=== PATIENT | male | born 1955 | race Two or more races ===

== ENCOUNTER 2019-02-01 23:13 | Inpatient (IN) | payer MEDICARE ==
[~2019-02-01] VITALS: Ht 185.4 cm; Wt 74.5 kg
[2019-02-02] MEDS ORDERED: ALBUTEROL/IPRATROPIUM 2.5MG/0.5MG, 3 ML ONE (02:09)
[2019-02-02 02:51] LABS: BASOPHILS # (AUTO) 0.03 x10^3/uL (0-0.1); BASOPHILS % (AUTO) 0 % (0-1); EOSINOPHILS # (AUTO) 0.01 x10^3/uL (0-0.4); EOSINOPHILS % (AUTO) 0 % (1-7); LYMPHOCYTES # (AUTO) 0.57 x10^3/uL (1-3.4); LYMPHOCYTES % (AUTO) 6 % (22-44); MD NO; MEAN CORPUSCULAR HEMOGLOBIN 31.8 pg (27.5-34.5); MEAN CORPUSCULAR HGB CONC 33.9 g/dL (33.2-36.2); MEAN CORPUSCULAR VOLUME 93.6 fL (81-97); MEAN PLATELET VOLUME 10.2 fL (7.4-10.4); MONOCYTES # (AUTO) 0.58 x10^3/uL (0.2-0.8); MONOCYTES % (AUTO) 6 % (2-9); NEUTROPHILS # (AUTO) 8.89 x10^3/uL (1.8-6.8); NEUTROPHILS % (AUTO) 88 % (42-75); PLATELET COUNT 159 x10^3/uL (130-400); RED CELL DISTRIBUTION WIDTH 13.6 % (9.4-14.8)
[2019-02-02] MEDS ORDERED: AMIODARONE 150 MG in DEXTROSE 5% 100 ML IV ONE (03:00)
[2019-02-02] MEDS ORDERED: AMIODARONE 900 MG in DEXTROSE 5% 482 ML IV PRN (03:00)
[2019-02-02 03:02] LABS: ANION GAP 6 mmol/L (5-15); CALCIUM 7.5 mg/dL (8.5-10.1); CHLORIDE 112 mmol/L (98-107); CREATININE 0.93 mg/dL (0.7-1.3)
[2019-02-02] MEDS ORDERED: PLEASE ENTER HEIGHT AND WEIGHT MC SCH (03:30)
[2019-02-02] MEDS ORDERED: AZITHROMYCIN 500 MG in SODIUM CHLORIDE 0.9% 250 ML IVPB SCH (03:30)
[2019-02-02] MEDS ORDERED: FILTER 0.22 MICRON IV PRN (03:30)
[2019-02-02] MEDS ORDERED: PHARMACY MAY ADJ FOR RENAL FX MC PRN (03:30)
[2019-02-02] MEDS ORDERED: ACETAMINOPHEN 650 MG/20.3 ML UDC PO PRN (03:30)
[2019-02-02] MEDS ORDERED: PANTOPRAZOLE 40 MG IV IV SCH (03:30)
[2019-02-02] MEDS ORDERED: PIPERACILLIN/TAZO/PMX 4.5GM 50 ML IVPB SCH (03:30)
[2019-02-02] MEDS ORDERED: methylPREDNISolone SOD SUCC 125 MG/2 ML IVPush SCH (03:30)
[2019-02-02] MEDS ORDERED: PLEASE ENTER ALLERGIES MC SCH (03:30)
[2019-02-02] MEDS ORDERED: MORPHINE SULFATE 4 MG/ML, 1ML IV PRN (03:30)
[2019-02-02] MEDS ORDERED: FUROSEMIDE 20 MG/2 ML ONE (03:34)
[2019-02-02] MEDS: FUROSEMIDE 20 MG/2 ML IV SCH ×2 (03:38→17:34)
[2019-02-02 03:39] VITALS: BP 148/128
[2019-02-02 04:04] VITALS: BP 111/73
[2019-02-02 04:15] LABS: ALANINE AMINOTRANSFERASE 51 U/L (12-78); ALBUMIN 2.9 g/dL (3.4-5.0); ANION GAP 6 mmol/L (5-15); CALCIUM 7.4 mg/dL (8.5-10.1); CHLORIDE 112 mmol/L (98-107); CREATININE 0.97 mg/dL (0.7-1.3)
[2019-02-02 04:19] LABS: ALKALINE PHOSPHATASE 72 U/L (45-117); BILIRUBIN,TOTAL 0.5 mg/dL (0.2-1.0); TOTAL PROTEIN 6.4 g/dL (6.4-8.2); TROPONIN I < 0.015 ng/mL (0.000-0.045)
[2019-02-02] MEDS ORDERED: hydrALAzine 20 MG/ML, 1ML IV PRN (04:30)
[2019-02-02] MEDS ORDERED: FENTANYL PF 100 MCG/2ML ONE (06:26)
[2019-02-02] MEDS: ALBUTEROL/IPRATROPIUM 2.5MG/0.5MG, 3 ML NPPB SCH ×5 (06:30→23:02)
[2019-02-02] MEDS ORDERED: PHARMACY MAY ADJ FOR RENAL FX MC SCH (06:30)
[2019-02-02] MEDS ORDERED: LIDOCAINE-MPF 1%, 2ML ENDO PRN (06:30)
[2019-02-02] MEDS ORDERED: FENTANYL PF 100 MCG/2ML IVPush PRN (06:30)
[2019-02-02] MEDS ORDERED: FENTANYL PF 100 MCG/2ML IV ONE (07:00)
[2019-02-02] MEDS: CEFTRIAXONE PMX 1GM/50ML 50 ML IV SCH (07:20)
[2019-02-02] MEDS: FAMOTIDINE 20 MG/2 ML IV SCH ×2 (07:20→20:00)
[2019-02-02] MEDS ORDERED: FUROSEMIDE 20 MG TABLET PO SCH (07:30)
[2019-02-02] MEDS: DOXYCYCLINE 100 MG in DEXTROSE 5% 250 ML IV SCH ×2 (08:15→22:15)
--- NOTE | 2019-02-02 09:57 | NUR ---
TF GOAL: w/ propofol: PROMOTE @ 75ml/hr off propofol: PROMOTE @ 80ml/hr
[2019-02-02] MEDS: methylPREDNISolone SOD SUCC 125 MG/2 ML IVPush SCH ×3 (10:29→22:06)
[2019-02-02] MEDS ORDERED: PROPOFOL 10 MG/ML, 100ML IV ONE (13:37)
[2019-02-02] MEDS ORDERED: ETOMIDATE 20 MG/10 ML ONE (13:37)
[2019-02-02] MEDS ORDERED: MIDAZOLAM 1 MG/ML, 5ML ONE (13:37)
[2019-02-02] MEDS: MIDAZOLAM 1 MG/ML, 2ML IVPush PRN (14:08)
[2019-02-02] MEDS: PROPOFOL 100 ML IV PRN ×2 (14:08→22:09)
[2019-02-02] MEDS: ENOXAPARIN 40 MG/0.4 ML SQ SCH (17:34)
[2019-02-03] MEDS: PROPOFOL 100 ML IV PRN ×5 (01:11→20:09)
[2019-02-03] MEDS: SODIUM CHLORIDE 0.9% 1,000 ML IV SCH ×3 (01:12→13:39)
[2019-02-03] MEDS: ALBUTEROL/IPRATROPIUM 2.5MG/0.5MG, 3 ML NPPB SCH ×6 (03:11→22:25)
[2019-02-03] MEDS: MIDAZOLAM 1 MG/ML, 2ML IVPush PRN ×4 (03:32→17:27)
[2019-02-03] MEDS: methylPREDNISolone SOD SUCC 125 MG/2 ML IVPush SCH ×4 (03:32→22:16)
[2019-02-03 04:00] VITALS: BP 98/68
[2019-02-03 04:24] LABS: BASOPHILS # (AUTO) 0.07 x10^3/uL (0-0.1); BASOPHILS % (AUTO) 1 % (0-1); EOSINOPHILS % (AUTO) 0 % (1-7); LYMPHOCYTES # (AUTO) 0.58 x10^3/uL (1-3.4); LYMPHOCYTES % (AUTO) 5 % (22-44); MD NO; MEAN CORPUSCULAR HEMOGLOBIN 31.5 pg (27.5-34.5); MEAN CORPUSCULAR HGB CONC 33.9 g/dL (33.2-36.2); MEAN CORPUSCULAR VOLUME 92.9 fL (81-97); MEAN PLATELET VOLUME 10.1 fL (7.4-10.4); MONOCYTES # (AUTO) 0.71 x10^3/uL (0.2-0.8); MONOCYTES % (AUTO) 6 % (2-9); NEUTROPHILS # (AUTO) 10.78 x10^3/uL (1.8-6.8); NEUTROPHILS % (AUTO) 89 % (42-75); PLATELET COUNT 148 x10^3/uL (130-400); RED BLOOD COUNT 4.19 x10^6/uL (4.38-5.82); RED CELL DISTRIBUTION WIDTH 13.1 % (9.4-14.8)
[2019-02-03 04:33] LABS: ANION GAP 4 mmol/L (5-15); CALCIUM 7.7 mg/dL (8.5-10.1); CHLORIDE 110 mmol/L (98-107); CREATININE 0.91 mg/dL (0.7-1.3)
[2019-02-03] MEDS: CEFTRIAXONE PMX 1GM/50ML 50 ML IV SCH (06:20)
[2019-02-03] MEDS: DOXYCYCLINE 100 MG in DEXTROSE 5% 250 ML IV SCH ×2 (08:29→20:09)
[2019-02-03] MEDS: FAMOTIDINE 20 MG/2 ML IV SCH ×2 (08:29→20:09)
[2019-02-03] MEDS: QUETIAPINE 25MG TABLET NG SCH ×2 (08:30→17:27)
[2019-02-03] MEDS: ENOXAPARIN 40 MG/0.4 ML SQ SCH (17:28)
[2019-02-04] MEDS: MIDAZOLAM 1 MG/ML, 2ML IVPush PRN
[2019-02-04] MEDS: QUETIAPINE 25MG TABLET NG SCH ×3 (00:30→17:27)
[2019-02-04] MEDS: PROPOFOL 100 ML IV PRN ×6 (00:32→23:32)
[2019-02-04] MEDS: ALBUTEROL/IPRATROPIUM 2.5MG/0.5MG, 3 ML NPPB SCH ×6 (02:22→23:00)
[2019-02-04] MEDS: SODIUM CHLORIDE 0.9% 1,000 ML IV SCH ×2 (04:39→20:47)
[2019-02-04] MEDS: methylPREDNISolone SOD SUCC 125 MG/2 ML IVPush SCH ×2 (04:44→10:24)
[2019-02-04 05:22] VITALS: BP 112/70
[2019-02-04 05:30] LABS: MEAN CORPUSCULAR HEMOGLOBIN 31.6 pg (27.5-34.5); MEAN CORPUSCULAR HGB CONC 33.6 g/dL (33.2-36.2); MEAN CORPUSCULAR VOLUME 93.9 fL (81-97); MEAN PLATELET VOLUME 10.7 fL (7.4-10.4); PLATELET COUNT 123 x10^3/uL (130-400); RED BLOOD COUNT 4.05 x10^6/uL (4.38-5.82); RED CELL DISTRIBUTION WIDTH 13.6 % (9.4-14.8)
[2019-02-04 05:34] LABS: ANION GAP 6 mmol/L (5-15); CALCIUM 7.8 mg/dL (8.5-10.1); CHLORIDE 112 mmol/L (98-107)
[2019-02-04] MEDS: CEFTRIAXONE PMX 1GM/50ML 50 ML IV SCH (06:03)
[2019-02-04 06:05] LABS: BASOPHILS # (AUTO) 0.01 x10^3/uL (0-0.1); BASOPHILS % (AUTO) 0 % (0-1); EOSINOPHILS # (AUTO) 0.01 x10^3/uL (0-0.4); EOSINOPHILS % (AUTO) 0 % (1-7); LYMPHOCYTES % (AUTO) 5 % (22-44); MD SCAN; MONOCYTES # (AUTO) 0.52 x10^3/uL (0.2-0.8); MONOCYTES % (AUTO) 4 % (2-9); NEUTROPHILS # (AUTO) 11.93 x10^3/uL (1.8-6.8); NEUTROPHILS % (AUTO) 91 % (42-75)
[2019-02-04] MEDS ORDERED: DEXMEDETOMIDINE 1,000 MCG in SODIUM CHLORIDE 0.9% 240 ML IV PRN (08:30)
[2019-02-04] MEDS: FAMOTIDINE 20 MG/2 ML IV SCH ×2 (09:18→20:47)
[2019-02-04] MEDS: DOXYCYCLINE 100 MG in DEXTROSE 5% 250 ML IV SCH ×2 (09:20→20:47)
[2019-02-04] MEDS: methylPREDNISolone SOD SUCC 40 MG/ML IVPush SCH (17:27)
[2019-02-04] MEDS: ENOXAPARIN 40 MG/0.4 ML SQ SCH (17:27)
[2019-02-04] MEDS: BUDESONIDE 0.5 MG/2 ML INHA INH SCH (21:00)
[2019-02-05] MEDS: methylPREDNISolone SOD SUCC 40 MG/ML IVPush SCH ×3 (01:13→13:44)
[2019-02-05] MEDS: QUETIAPINE 25MG TABLET NG SCH ×2 (01:13→07:32)
[2019-02-05] MEDS: PROPOFOL 100 ML IV PRN (02:47)
[2019-02-05] MEDS: ALBUTEROL/IPRATROPIUM 2.5MG/0.5MG, 3 ML NPPB SCH ×5 (03:00→20:31)
[2019-02-05 04:00] VITALS: BP 146/94
[2019-02-05 04:41] LABS: BASOPHILS # (AUTO) 0.06 x10^3/uL (0-0.1); BASOPHILS % (AUTO) 1 % (0-1); EOSINOPHILS # (AUTO) 0.01 x10^3/uL (0-0.4); EOSINOPHILS % (AUTO) 0 % (1-7); LYMPHOCYTES # (AUTO) 0.92 x10^3/uL (1-3.4); LYMPHOCYTES % (AUTO) 8 % (22-44); MD NO; MEAN CORPUSCULAR HEMOGLOBIN 31.3 pg (27.5-34.5); MEAN CORPUSCULAR VOLUME 94.7 fL (81-97); MEAN PLATELET VOLUME 9.8 fL (7.4-10.4); MONOCYTES # (AUTO) 0.87 x10^3/uL (0.2-0.8); MONOCYTES % (AUTO) 7 % (2-9); NEUTROPHILS % (AUTO) 84 % (42-75); PLATELET COUNT 169 x10^3/uL (130-400); RED CELL DISTRIBUTION WIDTH 13.5 % (9.4-14.8)
[2019-02-05 04:43] LABS: ANION GAP 4 mmol/L (5-15); CALCIUM 8.1 mg/dL (8.5-10.1); CHLORIDE 110 mmol/L (98-107)
[2019-02-05 04:44] LABS: CREATININE 0.72 mg/dL (0.7-1.3); TRIGLYCERIDES 135 mg/dL (50-200)
[2019-02-05] MEDS: CEFTRIAXONE PMX 1GM/50ML 50 ML IV SCH (06:09)
[2019-02-05] MEDS: BUDESONIDE 0.5 MG/2 ML INHA INH SCH ×2 (06:50→20:31)
[2019-02-05] MEDS ORDERED: FUROSEMIDE 20 MG/2 ML IV ONE (07:00)
[2019-02-05] MEDS: FAMOTIDINE 20 MG/2 ML IV SCH (07:31)
[2019-02-05] MEDS: DOXYCYCLINE 100 MG in DEXTROSE 5% 250 ML IV SCH (07:32)
[2019-02-05] MEDS: ENOXAPARIN 40 MG/0.4 ML SQ SCH (17:33)
[2019-02-06] MEDS: ALBUTEROL/IPRATROPIUM 2.5MG/0.5MG, 3 ML NPPB SCH ×5 (00:08→22:40)
[2019-02-06 04:44] LABS: ANION GAP 4 mmol/L (5-15); CALCIUM 8.1 mg/dL (8.5-10.1); CHLORIDE 105 mmol/L (98-107); CREATININE 0.68 mg/dL (0.7-1.3)
[2019-02-06 04:51] LABS: MEAN CORPUSCULAR HEMOGLOBIN 31.3 pg (27.5-34.5); MEAN CORPUSCULAR HGB CONC 33.6 g/dL (33.2-36.2); MEAN CORPUSCULAR VOLUME 93.3 fL (81-97); MEAN PLATELET VOLUME 9.8 fL (7.4-10.4); PLATELET COUNT 199 x10^3/uL (130-400); RED BLOOD COUNT 4.32 x10^6/uL (4.38-5.82); RED CELL DISTRIBUTION WIDTH 13.6 % (9.4-14.8)
[2019-02-06 05:00] VITALS: BP 119/63
[2019-02-06 05:13] LABS: BASOPHILS # (AUTO) 0.15 x10^3/uL (0-0.1); BASOPHILS % (AUTO) 1 % (0-1); EOSINOPHILS # (AUTO) 0.05 x10^3/uL (0-0.4); EOSINOPHILS % (AUTO) 0 % (1-7); LYMPHOCYTES # (AUTO) 2.39 x10^3/uL (1-3.4); LYMPHOCYTES % (AUTO) 15 % (22-44); MD SCAN; MONOCYTES # (AUTO) 1.75 x10^3/uL (0.2-0.8); MONOCYTES % (AUTO) 11 % (2-9); NEUTROPHILS # (AUTO) 11.24 x10^3/uL (1.8-6.8); NEUTROPHILS % (AUTO) 72 % (42-75)
[2019-02-06] MEDS: CEFTRIAXONE PMX 1GM/50ML 50 ML IV SCH (05:43)
[2019-02-06] MEDS: BUDESONIDE 0.5 MG/2 ML INHA INH SCH ×2 (07:58→19:30)
[2019-02-06] MEDS ORDERED: methylPREDNISolone SOD SUCC 40 MG/ML IVPush SCH (09:00)
[2019-02-06] MEDS: CEFUROXIME 500 MG TABLET PO SCH ×2 (09:47→19:49)
[2019-02-06] MEDS: ENOXAPARIN 40 MG/0.4 ML SQ SCH (17:19)
[2019-02-06 19:12] VITALS: BP 162/108
[2019-02-06 20:05] VITALS: BP 145/88
[2019-02-07 01:15] VITALS: BP 144/89
[2019-02-07 05:16] LABS: BASOPHILS # (AUTO) 0.12 x10^3/uL (0-0.1); BASOPHILS % (AUTO) 1 % (0-1); EOSINOPHILS # (AUTO) 0.25 x10^3/uL (0-0.4); EOSINOPHILS % (AUTO) 2 % (1-7); LYMPHOCYTES # (AUTO) 3.13 x10^3/uL (1-3.4); LYMPHOCYTES % (AUTO) 23 % (22-44); MD NO; MEAN CORPUSCULAR HEMOGLOBIN 30.8 pg (27.5-34.5); MEAN CORPUSCULAR VOLUME 93.2 fL (81-97); MONOCYTES # (AUTO) 1.11 x10^3/uL (0.2-0.8); MONOCYTES % (AUTO) 8 % (2-9); NEUTROPHILS # (AUTO) 8.83 x10^3/uL (1.8-6.8); NEUTROPHILS % (AUTO) 66 % (42-75); PLATELET COUNT 198 x10^3/uL (130-400); RED CELL DISTRIBUTION WIDTH 13.5 % (9.4-14.8)
[2019-02-07 05:26] LABS: CHLORIDE 102 mmol/L (98-107)
[2019-02-07 05:42] LABS: ALANINE AMINOTRANSFERASE 70 U/L (12-78); ALBUMIN 2.9 g/dL (3.4-5.0); ALKALINE PHOSPHATASE 59 U/L (45-117); ANION GAP 5 mmol/L (5-15); BILIRUBIN,TOTAL 0.5 mg/dL (0.2-1.0); CALCIUM 8.3 mg/dL (8.5-10.1); CREATININE 0.78 mg/dL (0.7-1.3); TOTAL PROTEIN 5.9 g/dL (6.4-8.2)
[2019-02-07] MEDS: ALBUTEROL/IPRATROPIUM 2.5MG/0.5MG, 3 ML NPPB SCH ×5 (06:00→22:40)
[2019-02-07 06:41] VITALS: BP 136/89
[2019-02-07] MEDS: BUDESONIDE 0.5 MG/2 ML INHA INH SCH ×2 (06:56→19:00)
[2019-02-07] MEDS: CEFUROXIME 500 MG TABLET PO SCH ×2 (09:46→20:09)
[2019-02-07] MEDS ORDERED: ALBUTEROL/IPRATROPIUM 2.5MG/0.5MG, 3 ML NPPB PRN (12:00)
[2019-02-07 14:00] VITALS: BP 127/88
[2019-02-07] MEDS: ENOXAPARIN 40 MG/0.4 ML SQ SCH (16:41)
[2019-02-07 19:05] VITALS: BP 134/87
[2019-02-08 02:53] VITALS: BP 101/67
[2019-02-08 05:28] LABS: ANION GAP 4 mmol/L (5-15); BASOPHILS # (AUTO) 0.03 x10^3/uL (0-0.1); BASOPHILS % (AUTO) 0 % (0-1); CALCIUM 8.3 mg/dL (8.5-10.1); CHLORIDE 101 mmol/L (98-107); EOSINOPHILS # (AUTO) 0.26 x10^3/uL (0-0.4); EOSINOPHILS % (AUTO) 2 % (1-7); LYMPHOCYTES # (AUTO) 2.67 x10^3/uL (1-3.4); LYMPHOCYTES % (AUTO) 22 % (22-44); MD NO; MEAN CORPUSCULAR HEMOGLOBIN 30.8 pg (27.5-34.5); MEAN CORPUSCULAR HGB CONC 32.9 g/dL (33.2-36.2); MEAN CORPUSCULAR VOLUME 93.8 fL (81-97); MONOCYTES # (AUTO) 1.09 x10^3/uL (0.2-0.8); MONOCYTES % (AUTO) 9 % (2-9); NEUTROPHILS % (AUTO) 67 % (42-75); PLATELET COUNT 181 x10^3/uL (130-400); RED BLOOD COUNT 4.59 x10^6/uL (4.38-5.82); RED CELL DISTRIBUTION WIDTH 13.3 % (9.4-14.8)
[2019-02-08 05:29] LABS: CREATININE 0.77 mg/dL (0.7-1.3)
[2019-02-08] MEDS ORDERED: ASPIRIN 325 MG TABLET EC PO SCH (06:00)
[2019-02-08] MEDS: BUDESONIDE 0.5 MG/2 ML INHA INH SCH (06:44)
[2019-02-08] MEDS: ALBUTEROL/IPRATROPIUM 2.5MG/0.5MG, 3 ML NPPB SCH ×3 (06:44→15:45)
[2019-02-08 07:40] VITALS: BP 119/82
[2019-02-08] MEDS ORDERED: NICOTINE 21 MG/24 HR PATCH.TD24 TD ONE (08:00)
[2019-02-08] MEDS: CEFUROXIME 500 MG TABLET PO SCH (09:07)
[2019-02-08 14:00] VITALS: BP 114/77
[2019-02-08] MEDS ORDERED: ASPI-650 PO (15:51)
[2019-02-08] MEDS ORDERED: PRED10TA PO (15:51)
[2019-02-08] MEDS ORDERED: CEFU500T50 PO (15:51)
[2019-02-08] MEDS ORDERED: IPRA3AMP30 NPPB (15:51)
[2019-02-08] MEDS ORDERED: BUDE0.5A INH (15:52)
== END 2019-02-08 16:30 | disposition home health service (06) | DRG 208 ==
LOC: 5SO 02-02 02:07 → CCU 02-02 02:30 → 3NE 02-06 11:46
PROVIDERS: ADMIT Family Medicine; ATTEND Internal Medicine
PROC: 5A1945Z Respiratory Ventilation, 24-96 Consecutive Hours (ICD-10-PCS; principal; 2019-02-02)
PROC: 0BH17EZ Insertion of Endotracheal Airway into Trachea, Via Natural or Artificial Opening (ICD-10-PCS; 2019-02-02)
DX: J96.21 Acute and chronic respiratory failure with hypoxia (principal); J18.9 Pneumonia, unspecified organism; G93.41 Metabolic encephalopathy; I48.92 Unspecified atrial flutter; Z99.11 Dependence on respirator [ventilator] status; I47.1 Supraventricular tachycardia; J43.9 Emphysema, unspecified; J96.22 Acute and chronic respiratory failure with hypercapnia; J20.9 Acute bronchitis, unspecified; E87.5 Hyperkalemia; E88.09 Other disorders of plasma-protein metabolism, not elsewhere classified; I27.20 Pulmonary hypertension, unspecified; I48.0 Paroxysmal atrial fibrillation; R13.10 Dysphagia, unspecified; Z72.0 Tobacco use; Z91.19 Patient's noncompliance with other medical treatment and regimen; Z99.81 Dependence on supplemental oxygen
CPT/HCPCS: 36415; 36600; 71045; 74018; 80048; 80053; 82803; 82962; 83605; 83735; 84100; 84478; 84484; 85025; 87040; 87070; 87081; 87205; 93005; 93306; 94002; 94003; 94150; 94640; 99285; G0378; J0456; J0696; J1650; J2250; J2543; J2704; J3010; J7060; J7620; J7626; C9113; J1940; J2920; J2930; J3490; J7030; J7050; J7512